=== PATIENT | male | born 1990 | race African-American/Black ===

== ENCOUNTER 2021-11-29 09:41 | Emergency (ER) | payer MEDICARE, SELFPAY ==
[2021-11-29 09:42] VITALS: BP 150/97; PULSE 129; RESP 18; TEMP 36.9; O2SAT 97; BMI 42.3
[2021-11-29 09:44] VITALS: BP 150/97; PULSE 131; RESP 18; TEMP 36.9; O2SAT 97
--- NOTE | 2021-11-29 09:54 | EDS_ITS ---
HPI History of Present Illness Chief Complaint: Wound Detail of Chief Complaint: Wound and discomfort to stump of left leg Informant: patient Narrative Narrative: Patient presents to the emergency department with a wound to his left leg stump that he noticed last evening. Patient states that he often has wounds like this when he uses his prosthesis frequently. Patient was traveling from [place] where he was in a psychiatric hospital back to [place] where he has physician set up to see him regarding his psych issues as well as his stump. He denies any fever or recent illness. Patient states that he had small amount of drainage from the wound last evening. Patient normally takes gabapentin for pain in his leg and has run out. He states that he does not want anything else for pain. [facility] Medical History (Updated 11/29/21 @ 09:[address] Eugene Armas DO) Amputation below knee Anxiety Bipolar 1 disorder Depression Schizophrenia Home Medications cephalexin 500 mg capsule 500 mg PO Q6 #40 CAPSULES 11/29/21 [Rx Last Taken Unknown] gabapentin 100 mg capsule 300 mg PO BID #60 caps 11/29/21 [Rx Last Taken Unknown] Allergy/AdvReac Type Severity Reaction Status Date / Time No Known Allergies Allergy Verified 11/29/21 09:47 Social History Smoking Status: Current every day smoker tobacco type: cigarettes ROS ROS ED Review of Systems ROS Unobtainable: other Constitutional Constitutional ED: Reports lethargy; Denies chills, fever(s), sweats or weight loss Eyes Eyes: Denies blurry vision, change in vision or diplopia ENT ENT ED: Denies rhinorrhea or sore throat Cardiovascular Cardiovascular: Reports chest pain and racing heartbeat; Denies orthopnea Respiratory/Chest Respiratory/Chest: Reports dyspnea and dyspnea on exertion; Denies cough, orthopnea or sputum Gastrointestinal Gastrointestinal: Denies abdominal pain, diarrhea, nausea or vomiting Genitourinary Genitourinary ED: Denies dysuria, hematuria or urinary frequency Musculoskeletal Musculoskeletal: Reports other Details: Pain to left leg stump with wound. ; Denies arthralgias, back pain, myalgias or neck pain Integumentary Denies abscess, Abrasions or rash Neurologic Neurologic: Denies headache(s) or weakness Psychiatric Psychiatric: Denies anxiety, depression or suicidal thoughts Endocrine Endocrinology: Denies polydipsia, polyphagia or polyuria Hematologic/Lymphatic Hematologic/Lymphatic: Denies easy bleeding, easy bruising or lymphadenopathy Allergic/Immunologic Allergic/Immunologic ED: Denies mouth swelling, tongue swelling or urticaria EXAM Physical Exam Const Vital Signs: 11/29/21 09:42 11/29/21 09:44 Temperature 98.5 F 98.5 F Temperature Source Oral Oral Pulse Rate 129 H 131 H Respiratory Rate 18 18 Blood Pressure 150/97 H 150/97 H Blood Pressure Mean 114 114 Pulse Ox 97 97 Oxygen Delivery Method Room Air Room Air Positive well nourished and well developed General Appearance ED: well developed and NAD HEENT Reports TM's clear and moist mucous membranes normocephalic and atraumatic; Negative for trauma or tenderness Tympanic Membrane ED: Yes TM's clear Eyes PERRL and EOMs intact bilaterally General Eye ED: Negative for pale conjunctiva or scleral icterus Neck no lymphadenopathy, supple and no JVD General: Negative for tenderness Chest Wall inspection of chest normal and palpation of chest normal Chest: Negative for tenderness Resp normal respiratory effort and clear to auscultation bilaterally Effort and Inspection: Negative for respiratory distress or pain with movement Auscultation: Negative for rhonchi, wheezes or diminished lung sounds Cardio regular rate, regular rhythm, S1 normal heart sound, S2 normal heart sound and no murmurs Peripheral Pulses: pulses 2+ throughout GI normal to inspection, nondistended, normoactive bowel sounds, soft to palpation, non-tender, non-distended and no masses Back/Spine no CVA tenderness and no thoracic nor lumbar tenderness Extremity Extremity Narrative: Left leg-patient does have a below the knee amputation. At the distal portion of the stump there is a small abrasion measuring approximately 3 cm in diameter. There is no erythema or purulent drainage noted. There is no bleeding. Area slightly tender to palpation. General Extremety ED: Negative for edema General Extremity: Negative for edema Neuro oriented x3, CN's II-XII intact bilaterally, no sensory deficits noted and gait normal Sensorium / Orientation: awake, alert, oriented to person, oriented to place and oriented to time Motor Exam: strength 5/5 throughout and strength abnormal Psych mental status grossly normal Skin no rashes or lesions noted and no wounds MDM MDM MDM Narrative Medical decision making narrative: Discussed with patient treatment options. Patient does not want to have x-rays of the stump or blood work performed as he states he frequently gets these type of lesions from wearing his prosthesis. Patient's comfortable with antibiotics and prescription for gabapentin. I will give him a dose of gabapentin here and a dose of Keflex. Patient will be given crutches and a clean dressing over the wound. At this time I do not see any evidence of cellulitis or abscess formation. Symptoms just started last evening. My suspicion for osteomyelitis is very low. Discharge Plan Triage Chief Complaint: Wound ED Provider: Eugene Armas Dx/Rx/DC Orders Clinical Impression: Left leg pain, Wound infection Instructions: ED Wound Check (Infection) Prescriptions: New cephalexin [cephalexin] 500 mg capsule 500 mg PO Q6 Qty: 40 0RF gabapentin 100 mg capsule 300 mg PO BID Qty: 60 0RF Activity Restrictions/Additional Instructions: See your doctors in [place] within next 3 to 5 days. Disposition Disposition: Home, Self Care
[2021-11-29] MEDS: Gabapentin 300 MG Capsule PO (10:25)
[2021-11-29] MEDS: Cephalexin 250 MG Capsule 500 MG PO (10:47)
[2021-11-29] MEDS: Haloperidol 5 MG Tablet PO (10:50)
[2021-11-29] MEDS: Divalproex Sodium 250 MG Tablet 500 MG PO (10:50)
--- NOTE | 2021-11-29 11:13 | CM.ED ---
AKUA Note Referral Source: lamp shade maker, Antoinette Referral Reason: [facility] [place] and got off bus to receive medical treatment. Patient needs to reschedule bus ticket. AKUA called customer service and spoke to Som. She said that patient will need to change the bus ticket for a $20 non refundable ticket to [place]. SW explained the circumstance and and inquired about waiver of the fee. wood repatcher said that she would need to speak to the teaching supervisor for waiving of fee. AKUA met with patient. Patient said that he has money to pay for ticket or $ 20 fee. SW was present in the room when patient called [facility]. Patient reported that the ticket would have to be a new ticket for $86 and he had money for the ticket. Patient said that he has to pay for the ticket at the [facility]. Patient will need ride to [facility]. AKUA called Marketing and scheduled ride for patient to [facility] in [place] for 12noon. MD and RN notified. Patient was updated regarding discharge plan and he again confirmed that he has money for ticket to [place]. Akua provided patient with his insurance information for further reference. Per Izzy in Registration patient has [facility] Dual RN Antoinette is getting patient's prescriptions filled. Plan: Discharge to [facility] for resumption of trip to [place]. No other issues or concerns voiced. Carole LEVINE
[2021-11-29 11:35] VITALS: BP 177/78; PULSE 121; RESP 18; TEMP 36.6; O2SAT 96
== END 2021-11-29 12:08 | disposition home or self-care (01) ==
PROVIDERS: Emergency Provider Emergency Medicine; Visit Provider Emergency Medicine
DX: T87.89 Other complications of amputation stump (principal); Z89.512 Acquired absence of left leg below knee; M79.605 Pain in left leg; F17.210 Nicotine dependence, cigarettes, uncomplicated
CPT/HCPCS: 99285